=== PATIENT | male | born 1950 | race Caucasian/White ===

== ENCOUNTER 2019-11-24 14:46 | Emergency (ER) | payer MEDICARE, OTHER ==
[2019-11-25 15:40] LABS: SARS-CoV-2 MS2 Positive; SARS-CoV-2 N Gene Positive; SARS-CoV-2 S Gene Positive; SARS-CoV-2 orf1ab Positive
== END 2019-11-24 15:40 | disposition home or self-care (01) ==
LOC: ERS 14:46
DX: U07.1 COVID-19 (principal)
CPT/HCPCS: 99283; U0003; 87635

== ENCOUNTER 2019-12-06 15:58 | Emergency (ER) | payer MEDICARE, OTHER ==
[2019-12-06 17:06] LABS: #Eosinphils 0.1 thou/uL (0.0-0.7); #Lymphocytes 0.7 thou/uL (1.20-3.40); #Monocytes 0.5 thou/uL (0.11-0.59); #Neutrophils 3.5 thou/uL (1.40-6.50); %Basophils 0.4 % (0.0-1.0); %Eosinophils 1.1 % (0.0-10.0); %Lymphocytes 14.4 % (21.0-51.0); %Monocytes 10.7 % (0.0-10.0); %Neutrophils 73.4 % (42.0-75.0); Hemoglobin 16.3 g/dL (14.0-18.0); Mean Corpuscular HGB CONC 35.1 g/dL (32.0-36.0); Mean Corpuscular Hemoglobin 32.9 pg (27.0-31.0); Mean Corpuscular Volume 93.6 fL (78.0-98.0); Mean Platelet Volume 10.2 fL (7.4-10.4); Platelet Count 75 thou/uL (130-400); RBC Distribution Width 11.7 % (11.5-14.5); Red Blood Cell (RBC) Count 4.94 mill/uL (4.70-6.10); White Blood Cell (WBC) Count 4.8 thou/uL (4.8-10.8)
[2019-12-06 17:17] LABS: Platelet Morphology Comment Appears Decreased; RBC Morphology Normal
[2019-12-06 17:24] LABS: ALT (SGPT) 25 U/L (8-55); AST (SGOT) 28 U/L (5-34); Albumin 3.9 g/dL (3.4-4.8); Alkaline Phosphatase 91 U/L (40-110); Anion Gap 15 mmol/L (10-20); BUN (Urea Nitrogen) 10 mg/dL (8.4-25.7); Bilirubin, Total 0.6 mg/dL (0.2-1.2); Calc. Creatinine Clearance 0 mL/min (70-130); Calcium 8.4 mg/dL (7.8-10.44); Carbon Dioxide 17 mmol/L (23-31); Chloride 107 mmol/L (98-107); Estimated GFR-MDRD 72; Globulin 3.2 g/dL (2.4-3.5); Glucose 89 mg/dL (80-115); Potassium 4.3 mmol/L (3.5-5.1); Protein, Total 7.1 g/dL (5.8-8.1); Sodium 135 mmol/L (136-145)
--- NOTE | 2019-12-06 17:39 | RAD ---
FRONTAL RADIOGRAPH CHEST: 12/06/19 COMPARISON: 01/15/08 HISTORY: Chest pain. FINDINGS: There is mild increased linear interstitial density in the perihilar regions of the lung bases. No fo kit consolidation, or alveolar edema. No pneumothorax. IMPRESSION: Mild increased linear perihilar and bibasilar density which may signify volume loss of infiltrate. In the proper clinical setting, COVID pneumonia could have this appearance. POS: [facility]
== END 2019-12-06 16:08 | disposition home or self-care (01) ==
LOC: ERS 15:58
DX: U07.1 COVID-19 (principal); J12.89 Other viral pneumonia; E86.0 Dehydration; R79.89 Other specified abnormal findings of blood chemistry; F17.220 Nicotine dependence, chewing tobacco, uncomplicated
CPT/HCPCS: 36415; 71045; 80053; 82553; 84484; 85025; 93005; 96372; J1100

== ENCOUNTER 2021-12-30 14:45 | Outpatient (CLI) | payer MEDICARE, OTHER | END 2021-12-30 14:46 | disposition home or self-care (01) | LOC: BICULT 14:45 | PROVIDERS: ATTEND Family Medicine | DX: N50.89 Other specified disorders of the male genital organs (principal); N50.3 Cyst of epididymis; I86.1 Scrotal varices; N44.2 Benign cyst of testis | CPT/HCPCS: 76870; 93976 ==

== ENCOUNTER 2022-02-03 11:01 | Outpatient (CLI) | payer MEDICARE, OTHER | END 2022-02-03 11:02 | disposition home or self-care (01) | LOC: SCSRAD 11:01 | PROVIDERS: ATTEND Family Medicine | DX: M54.50 Low back pain, unspecified (principal); R05.3 Chronic cough; R97.20 Elevated prostate specific antigen [PSA] | CPT/HCPCS: 36415; 71046; 74018; 84153 ==